=== PATIENT | male | born 1955 | race Caucasian/White ===

== ENCOUNTER 2019-03-16 10:29 | Emergency (ER) | payer BC ==
[2019-03-16 11:10] LABS: ALT (SGPT) 67 U/L (8-55); AST (SGOT) 70 U/L (5-34); Albumin 3.6 g/dL (3.4-4.8); Alkaline Phosphatase 134 U/L (40-110); Anion Gap 24 mmol/L (10-20); BUN (Urea Nitrogen) 14 mg/dL (8.4-25.7); Bilirubin, Total 0.7 mg/dL (0.2-1.2); CK (CPK) 157 U/L (30-200); Calc. Creatinine Clearance 0 mL/min (70-130); Calcium 9.8 mg/dL (7.8-10.44); Carbon Dioxide 17 mmol/L (23-31); Chloride 103 mmol/L (98-107); Estimated GFR-MDRD 39; Globulin 3.3 g/dL (2.4-3.5); Glucose 395 mg/dL (80-115); Lipase 51 U/L (8-78); Potassium 3.4 mmol/L (3.5-5.1); Protein, Total 6.9 g/dL (5.8-8.1); Sodium 141 mmol/L (136-145)
[2019-03-16 11:12] LABS: INR-International Normal Ratio 1.3; PTT 36.9 SEC (22.9-36.1); Prothrombin Time 16.4 SEC (12.0-14.7)
[2019-03-16 11:13] LABS: #Basophils 0.2 thou/uL (0.0-0.2); #Eosinphils 0.1 thou/uL (0.0-0.7); #Lymphocytes 4.3 thou/uL (1.20-3.40); #Monocytes 0.7 thou/uL (0.11-0.59); #Neutrophils 8.2 thou/uL (1.40-6.50); %Basophils 1.6 % (0.0-1.0); %Lymphocytes 31.7 % (21.0-51.0); %Monocytes 4.9 % (0.0-10.0); %Neutrophils 60.8 % (42.0-75.0); Hemoglobin 15.9 g/dL (14.0-18.0); Mean Corpuscular Hemoglobin 29.6 pg (27.0-31.0); Mean Corpuscular Volume 95.3 fL (78.0-98.0); Mean Platelet Volume 7.8 fL (7.4-10.4); Platelet Count 135 thou/uL (130-400); RBC Distribution Width 13.8 % (11.5-14.5); Red Blood Cell (RBC) Count 5.37 mill/uL (4.70-6.10); White Blood Cell (WBC) Count 13.5 thou/uL (4.8-10.8)
[2019-03-16 11:34] LABS: D-Dimer Test 5.35 *mcg/mL (0.27-0.43)
[2019-03-16] MEDS ORDERED: Norepinephrine 4 MG/4 ML VIAL ONE (11:35)
[2019-03-16] MEDS ORDERED: Lidocaine 1% (PF) 30 ML VIAL ONE (12:21)
[2019-03-16] MEDS ORDERED: Tenecteplase 50 MG - STEMI KIT ONE (13:05)
--- NOTE | 2019-03-16 18:40 | RAD ---
PORTABLE CHEST: Date: 03-16-19 FINDINGS: An AP portable film at 1042 shows cardiomegaly compared to the 05-31-14 study. There is no vascular c ongestion. The patient has been intubated with the endotracheal tube at approximately the T2 level. N o edema is appreciated. Various lines and resuscitation equipment surround the patient. IMPRESSION: Good endotracheal tube placement. Cardiomegaly but clear lungs. POS: HOME
== END 2019-03-16 12:59 | disposition short-term general hospital (02) ==
LOC: BURERS 10:29
DX: I46.9 Cardiac arrest, cause unspecified (principal); I21.3 ST elevation (STEMI) myocardial infarction of unspecified site; F17.210 Nicotine dependence, cigarettes, uncomplicated
CPT/HCPCS: 36415; 71045; 80053; 82550; 82553; 83605; 83690; 84484; 85025; 85379; 85610; 85730; 92950; 94760; 96361; 96365; 96366; 96368; 96374; 96375; 96376; J1644; J2001; J3101